=== PATIENT | male | born 1995 | race Caucasian/White ===

== ENCOUNTER 2017-12-09 06:04 | Day surgery (SDC) | payer OTHER ==
[2017-12-09] MEDS ORDERED: MIDAZOLAM 1 MG/ML 2 ML INJ ×2 (07:36)
[2017-12-09] MEDS ORDERED: FENTAnyl 50 MCG/ML VIAL (07:36)
== END 2017-12-09 12:42 | disposition home or self-care (01) ==
LOC: GIL 06:04
DX: K21.0 Gastro-esophageal reflux disease with esophagitis (principal); K29.60 Other gastritis without bleeding
CPT/HCPCS: 43239; 87081